=== PATIENT | female | born 1965 | race American Indian/Alaskan Native ===

== ENCOUNTER 2017-05-27 09:24 | Outpatient (CLI) | payer OTHER ==
--- NOTE | 2017-05-27 11:10 | Mammography Report ---
BILATERAL MAMMOGRAM: FINDINGS: The breast tissue is heterogeneously dense, which could obscure detection of small masses (approximately 50%-75% glandular). No mass, distortion, suspicious calcification, or skin change is seen. No significant change when compared to exams dating back to 2015. CAD was utilized. IMPRESSION: Negative mammogram. There is no mammographic evidence of malignancy. RECOMMENDATION: Follow-up per ACS guidelines. BI-RADS CATEGORY: 1 = Negative ACR BI-RADS MAMMOGRAPHIC CODES: 0 = Needs additional imaging evaluation; 1 = Negative; 2 = Benign; 3 = Probably benign; 4 = Suspicious; 5 = Malignant; 6 = Known biopsy-proven malignancy COMMENT: 1. Dense breast tissue, i.e., adenosis, fibrocystic changes, etc., may obscure an underlying neoplasm. 2. Approximately 10% of cancers are not detected with mammography. 3. A negative mammography report should not delay biopsy if a clinically suspicious mass is present. COMMENT: Patient follow-up letters are generated in [email or web address].
== END 2017-05-27 09:25 | disposition home or self-care (01) ==
LOC: SPVWC 09:24
DX: Z12.31 Encounter for screening mammogram for malignant neoplasm of breast (principal)
CPT/HCPCS: 77067; G0202

== ENCOUNTER 2017-08-25 10:43 | Outpatient (CLI) | payer OTHER ==
--- NOTE | 2017-08-25 11:36 | XRay Report ---
RIGHT KNEE: Pain. The bony architecture is intact without evidence of fracture or dislocation. No significant soft tissue abnormality is seen. IMPRESSION: Normal right knee.
== END 2017-08-25 10:44 | disposition home or self-care (01) ==
LOC: SPVIMAG 10:43
DX: M25.561 Pain in right knee (principal)

== ENCOUNTER 2018-06-12 08:05 | Outpatient (CLI) | payer OTHER ==
--- NOTE | 2018-06-12 13:37 | Mammography Report ---
BILATERAL DIGITAL SCREENING MAMMOGRAM with CAD: 06/12/18 08:05:00 CLINICAL: Routine screening. COMPARISON:05/27/17 FINDINGS: The breasts are heterogeneously dense, which may obscure small masses. No mass, architectural distortion or suspicious calcifications. IMPRESSION: No mammographic evidence of malignancy. BI-RADS CATEGORY: 1 - - Negative RECOMMENDATION: Routine mammographic screening in one year. COMMENT: Patient follow-up letters are generated by our [employer] application.
== END 2018-06-12 08:06 | disposition home or self-care (01) ==
LOC: SPVWC 08:05
DX: Z12.31 Encounter for screening mammogram for malignant neoplasm of breast (principal)
CPT/HCPCS: 77067

== ENCOUNTER 2019-06-22 08:07 | Outpatient (CLI) | payer OTHER ==
--- NOTE | 2019-06-25 10:48 | Mammography Report ---
DIGITAL SCREENING MAMMOGRAM WITH CAD, 06/22/2019 INDICATION: Routine screening mammography. TECHNIQUE: Digital bilateral 2D mammography was obtained in the craniocaudal and mediolateral obliq ue projections. This examination was interpreted with the benefit of Computer-Aided Detection analysi s. COMPARISON: 06/12/2018 05/26/2015 FINDINGS: Breast Density: There are scattered areas of fibroglandular density. There is no evidence of dominant mass, suspicious calcifications or architectural distortion in eithe r breast. IMPRESSION: No mammographic evidence of malignancy. Follow up recommendation: Routine yearly BI-RADS Category 1: Negative. A "normal" or negative report should not discourage follow up or biopsy of a clinically significant f inding. A written summary of these findings will be mailed to the patient. The patient will be entered into a mammography reporting system which will generate a reminder letter for the patient's next appointmen t at the appropriate interval. The [employer] recommends yearly mammograms starting at age 40 and continuing as l daphnie as a woman is in good health. Breast MRI is recommended for women with an approximate 20-25% or greater lifetime risk of breast cancer, including women with a strong family history of breast or ova jeanette cancer or who have been treated for Hodgkin's disease. Signer Name: Tomsá Merritt MD Signed: 06/25/2019 10:43 AM Workstation Name: [id number]
== END 2019-06-22 08:08 | disposition home or self-care (01) ==
LOC: SPVWC 08:07
PROVIDERS: ATTEND Urology
DX: Z12.31 Encounter for screening mammogram for malignant neoplasm of breast (principal)
CPT/HCPCS: 77067

== ENCOUNTER 2020-06-26 10:49 | Outpatient (CLI) | payer OTHER ==
--- NOTE | 2020-06-27 09:06 | Mammography Report ---
DIGITAL SCREENING MAMMOGRAM WITH CAD, 06/27/2020 CLINICAL INFORMATION / INDICATION: Routine screening mammography. SCREENING MAMMO TECHNIQUE: Digital bilateral 2D mammography was obtained in the craniocaudal and mediolateral obliqu e projections. This examination was interpreted with the benefit of Computer-Aided Detection analysis . COMPARISON: 06/22/2019 and 06/12/2018 FINDINGS: Breast Density: There are scattered areas of fibroglandular density. No dominant mass, suspicious calcifications, or architectural distortion in right breast. There is new focal asymmetric density with possible architectural distortion in the 11:30 to 12:00 po sition of the left breast approximately 8 cm from the nipple IMPRESSION: New focal asymmetric density with possible architectural distortion in the left breast re quires further evaluation. Follow up recommendation: Special View: Spot BI-RADS Category 0: Incomplete. Needs additional imaging evaluation and/or prior mammograms for keenan rison. A "normal" or negative report should not discourage follow up or biopsy of a clinically significant f inding. A written summary of these findings will be mailed to the patient. The patient will be entered into a mammography reporting system which will generate a reminder letter for the patient's next appointmen t at the appropriate interval. The [employer] recommends yearly mammograms starting at age 40 and continuing as l daphnie as a woman is in good health. Breast MRI is recommended for women with an approximate 20-25% or greater lifetime risk of breast cancer, including women with a strong family history of breast or ova jeanette cancer or who have been treated for Hodgkin's disease. Signer Name: Venkat Valentine MD Signed: 06/27/2020 9:02 AM Workstation Name: [id number]
== END 2020-06-26 10:50 | disposition home or self-care (01) ==
LOC: SPVWC 10:49
PROVIDERS: ATTEND Urology
DX: Z12.31 Encounter for screening mammogram for malignant neoplasm of breast (principal); N64.89 Other specified disorders of breast
CPT/HCPCS: 77067

== ENCOUNTER 2020-08-06 09:45 | Outpatient (CLI) | payer OTHER ==
--- NOTE | 2020-08-06 10:26 | Mammography Report ---
LEFT DIAGNOSTIC MAMMOGRAM INDICATION: Evaluate finding noted previously in the left superior breast on the recent screening luan mogram. COMPARISON: 06/26/2020, 06/22/2019, 06/16/2018, 05/27/2017, 05/28/2016, 05/26/2015. FINDINGS: Additional mammographic views of the left superior breast were performed to evaluate the si te of a previously suspected area of architectural distortion. There is questionable persistence of t his finding particularly on the MLO view. As a conservative measure, a targeted ultrasound is recomme nded for further evaluation. IMPRESSION: There is questionable persistence of the suspected area of architectural distortion within the left b reast, particularly on the MLO view. As a conservative measure, a targeted ultrasound is recommended for further evaluation. For localization purposes, the left breast should be scanned focused from the 11:00 to the 12:00 position, 8 cm from the nipple. The patient was not scheduled for an ultrasound t he day of this exam and will be scheduled in the near future to return. BIRADS 0-Incomplete: Needs additional imaging evaluation NOTE: WE WILL RECALL THE PATIENT FOR THIS ADDITIONAL EVALUATION. Signer Name: Eulogio Jorgensen MD Signed: 08/06/2020 10:22 AM Workstation Name: [id number]
== END 2020-08-06 09:46 | disposition home or self-care (01) ==
LOC: SPVWC 09:45
DX: R92.8 Other abnormal and inconclusive findings on diagnostic imaging of breast (principal)

== ENCOUNTER 2020-08-19 15:12 | Outpatient (CLI) | payer OTHER ==
--- NOTE | 2020-08-19 16:15 | Ultrasound Report ---
ULTRASOUND BREAST LEFT LIMITED, 08/19/2020 CLINICAL INFORMATION / INDICATION: ABN MAMMO. Patient presents for further evaluation of a focal asym metric density with possible associated distortion in the left breast. TECHNIQUE: Targeted ultrasound evaluation was performed of the area of interest. COMPARISON: Prior mammograms 08/06/2020 and 06/26/2020 FINDINGS: Targeted ultrasound was performed of the 9 through 12:00 position of the left breast. There is an inc idental 3 mm benign cyst in the 9:00 position located 4 cm from the nipple. There is no suspicious cy stic or solid lesion to correspond with the previously questioned focal asymmetric density. IMPRESSION: 1. No sonographic abnormality to correspond with the previously questioned left breast focal asymmetr ic density, confirming that this represents overlapping fibroglandular tissue. 2. Incidental tiny benign cyst in the left breast. Follow up recommendation: Back to schedule. BI-RADS Category 2: Benign. A normal or "negative" report should not preclude biopsy or follow-up of a clinically suspicious find ing. Signer Name: Chrissy Wiggins MD Signed: 08/19/2020 4:11 PM Workstation Name: [id number]
== END 2020-08-19 15:13 | disposition home or self-care (01) ==
LOC: SPVWC 15:12
PROVIDERS: ATTEND Urology
DX: N60.02 Solitary cyst of left breast (principal); R92.8 Other abnormal and inconclusive findings on diagnostic imaging of breast

== ENCOUNTER 2021-06-29 08:16 | Outpatient (CLI) | payer OTHER ==
--- NOTE | 2021-06-29 14:16 | Mammography Report ---
DIGITAL SCREENING MAMMOGRAM WITH CAD, 06/29/2021 CLINICAL INFORMATION / INDICATION: Routine screening mammography. SCREENING MAMMOGRAM TECHNIQUE: Digital bilateral 2D mammography was obtained in the craniocaudal and mediolateral obliqu e projections. This examination was interpreted with the benefit of Computer-Aided Detection analysis . COMPARISON: 07/10/2012 through 08/06/2020. FINDINGS: Breast Density: There are scattered areas of fibroglandular density. No dominant mass, suspicious calcifications, or architectural distortion in either breast. IMPRESSION: No mammographic evidence of malignancy. Follow up recommendation: Routine yearly BI-RADS Category 1: Negative. A "normal" or negative report should not discourage follow up or biopsy of a clinically significant f inding. A written summary of these findings will be mailed to the patient. The patient will be entered into a mammography reporting system which will generate a reminder letter for the patient's next appointmen t at the appropriate interval. The [employer] recommends yearly mammograms starting at age 40 and continuing as l daphnie as a woman is in good health. Breast MRI is recommended for women with an approximate 20-25% or greater lifetime risk of breast cancer, including women with a strong family history of breast or ova jeanette cancer or who have been treated for Hodgkin's disease. Signer Name: Wero Siddiqi MD Signed: 06/29/2021 2:12 PM Workstation Name: [id number]
== END 2021-06-29 08:17 | disposition home or self-care (01) ==
LOC: SPVWC 08:16
PROVIDERS: ATTEND Urology
DX: Z12.31 Encounter for screening mammogram for malignant neoplasm of breast (principal)
CPT/HCPCS: 77067